=== PATIENT | female | born 1980 | race Caucasian/White ===

== ENCOUNTER 2017-12-19 03:29 | Observation (INO) | payer BC ==
[2017-12-19] MEDS ORDERED: Betamethasone Acetate/Betamethasone Sod Phosphate 30 MG/5 ML MDV IM ONE (05:14)
--- NOTE | 2017-12-19 09:01 | US ---
EXAM DATE: 12/19/17 PATIENT'S AGE: 37 Patient: RODY CORCORAN Facility: [place], [place] Site . Site : 1980 Study: US OB Pelvis -12/19/2017 5:30:43 AM Ordering Physician: Radha Whitmore Final Report: INDICATION: Vaginal bleeding TECHNIQUE: Limited transabdominal and transvaginal obstetrical ultrasound. COMPARISON: None available FINDINGS: A single live intrauterine gestation is seen in cephalic presentation. There is cardiac activity with a heart rate of 147 bpm. measurements are not performed. anatomy is not evaluated. The placenta is anterior. The inferior placental tip overlies the internal cervical os consistent with complete placenta previa. The cervix measures 3.8 centimeters. There is small fluid in the endocervical canal. The amniotic fluid index measures 24 centimeters. Neither ovary is visualized. IMPRESSION: A single live intrauterine gestation. Complete placenta previa. SLOAN measuring 24 centimeters. Very limited evaluation of anatomy. Correlate with anatomical survey , as clinically indicated. Dictated by Laurent Castellano MD @ 12/19/2017 6:08:10 AM Dictated by: Laurent Castellano MD @ 12/19/2017 06:08:16 ----- ADDENDUM ----- The findings were communicated to the patient`s nurse, Leti, on 12/19/2017 at 6 :12 a.m. Dictated by Laurent Castellano MD @ Dec 19 2017 6:17AM (Electronic Signature) Report Signed by Proxy. DARRION
--- NOTE | 2017-12-19 09:02 | US ---
EXAM DATE: 12/19/17 PATIENT'S AGE: 37 Patient: RODY CORCOARN Facility: [place], [place] Site . Site : 1980 Study: US OB Pelvis -12/19/2017 5:30:43 AM Ordering Physician: Radha Whitmore Final Report: INDICATION: Vaginal bleeding TECHNIQUE: Limited transabdominal and transvaginal obstetrical ultrasound. COMPARISON: None available FINDINGS: A single live intrauterine gestation is seen in cephalic presentation. There is cardiac activity with a heart rate of 147 bpm. measurements are not performed. anatomy is not evaluated. The placenta is anterior. The inferior placental tip overlies the internal cervical os consistent with complete placenta previa. The cervix measures 3.8 centimeters. There is small fluid in the endocervical canal. The amniotic fluid index measures 24 centimeters. Neither ovary is visualized. IMPRESSION: A single live intrauterine gestation. Complete placenta previa. SLOAN measuring 24 centimeters. Very limited evaluation of anatomy. Correlate with anatomical survey , as clinically indicated. Dictated by Laurent Castellano MD @ 12/19/2017 6:08:10 AM Dictated by: Laurent Castellano MD @ 12/19/2017 06:08:16 ----- ADDENDUM ----- The findings were communicated to the patient`s nurse, Leti, on 12/19/2017 at 6 :12 a.m. Dictated by Laurent Castellano MD @ Dec 19 2017 6:17AM (Electronic Signature) Report Signed by Proxy. DARRION
[2017-12-20] MEDS ORDERED: Betamethasone Acetate/Betamethasone Sod Phosphate 30 MG/5 ML MDV IM ONE (05:22)
[2017-12-21] MEDS: Nitrofurantoin Monohydrate/Macrocrystalline 100 MG Cap PO SCH ×2 (19:30→21:00)
[2017-12-22] MEDS: Nitrofurantoin Monohydrate/Macrocrystalline 100 MG Cap PO SCH (09:16)
== END 2017-12-22 10:50 | disposition home or self-care (01) ==
LOC: MW.OBCHECK 03:29 → MW.OB 03:32 → MW.OBCHECK 03:48 → MW.OB 12-20 20:44
PROVIDERS: ADMIT Obstetrics & Gynecology; ATTEND Obstetrics & Gynecology
DX: O44.12 Complete placenta previa with hemorrhage, second trimester (principal); Z3A.23 23 weeks gestation of pregnancy
CPT/HCPCS: 36415; 76805; 76817; 81001; 85027; 85384; 85610; 85730; 86850; 86900; 86901; 87086; 87088; 87186; 96372; A9270; G0378; J0702; J2790

== ENCOUNTER 2021-07-27 10:19 | Inpatient (IN) | payer BC ==
[2021-07-27] MEDS: Lactated Ringers 1,000 ML IV SCH ×2 (10:30→11:23)
[2021-07-27] MEDS ORDERED: Sodium Chloride 0.9% 2.5 ML Syringe FLUSH PRN (10:39)
[2021-07-27] MEDS ORDERED: Sodium Chloride 0.9% 10 ML SDV IV PRN (10:39)
[2021-07-27] MEDS ORDERED: ceFAZolin 2 GM in Premix Bag 1 BAG IV ONE (10:39)
[2021-07-27] MEDS ORDERED: Sodium Chloride 0.9% 10 ML Syringe FLUSH PRN (10:39)
[2021-07-27] MEDS ORDERED: Citric Acid/Sodium Citrate Solution 30 ML Cup PO ONE (10:39)
[2021-07-27] MEDS ORDERED: Oxytocin/0.9 % Sodium Chloride 30 UNIT/500 ML BAG IV SCH (10:45)
--- NOTE | 2021-07-27 10:54 | PCM.PREANE ---
Preanesthetic Assessment - Anesthesia/Transfusion/Family Hx Anesthesia History: Prior Anesthesia Without Reaction (PONV - Itching) Type of Anesthesia Reaction: Other (see below) (PONV) Family History of Anesthesia Reaction: Yes Transfusion History: Prior Transfusion Without Reaction Additional History: Multiple prior surgery and C Section without anesthesia complications. - Review of Systems General: No Symptoms Pulmonary: No Symptoms Cardiovascular: No Symptoms Gastrointestinal: No Symptoms Neurological: No Symptoms Other: Reports: None - Physical Assessment NPO Status Date: 07/27/21 NPO Status Time: 00:00 Height: 1.93 m Weight: 131.995 kg Mental Status: Alert & Oriented x3 Airway Class: Mallampati = 1 Dentition: Reports: Normal Dentition Thyro-Mental Finger Breadths: 3 Mouth Opening Finger Breadths: 3 ROM/Head Extension: Full Lungs: Clear to Auscultation, Normal Respiratory Effort Cardiovascular: Regular Rate, Regular Rhythm - Allergies Allergies/Adverse Reactions: Allergies Allergy/AdvReac Type Severity Reaction Status Date / Time No Known Allergies Allergy Verified 07/21/21 07:37 - Blood Blood Available: Yes Product(s) Available: PRBC (Type and Screen) - Anesthesia Plan Pre-Op Medication Ordered: None - Acknowledgements Anesthesia Type Planned: Spinal Pt an Appropriate Candidate for the Planned Anesthesia: Yes Alternatives and Risks of Anesthesia Discussed w Pt/Guardian: Yes Pt/Guardian Understands and Agrees with Anesthesia Plan: Yes Additional Comments: Pt denies coagulopathy, neurological disorders, or anticoagulant use. PreAnesthesia Questionnaire HEENT History: Reports: Other (See Below) Other HEENT History: wears glasses Cardiovascular History: Reports: None Respiratory History: Reports: Sleep Apnea Other Respiratory History: states has been diagnosed with sleep apnea but has not received her CPAP yet as it has been recalled Gastrointestinal History: Reports: None Genitourinary History: Reports: None [employer] History: Reports: Neurological History: Reports: None Psychiatric History: Reports: Anxiety, Depression Endocrine/Metabolic History: Reports: Obesity/BMI 30+ Hematologic History: Reports: Blood Transfusion(s) Immunologic History: Reports: None Oncologic (Cancer) History: Reports: None Dermatologic History: Reports: None - Past Surgical History Musculoskeletal Surgical History: Reports: Knee Replacement - SUBSTANCE USE Tobacco Use Status *Q: Never Tobacco User Recreational Drug Use History: No - HOME MEDS Home Medications: Home Meds Acetaminophen [Tylenol Extra Strength] 2 tab PO ASDIRECTED PRN 07/21/21 [History] Ferrous Sulfate [Iron] 65 mg PO ASDIRECTED 07/21/21 [History] Pnv No.95/Ferrous Fum/Folic AC [ Vitamin Tablet] 1 tab PO DAILY 07/21/21 [History] - CURRENT (IN HOUSE) MEDS Current Meds: Current Medications Citric Acid/Sodium Citrate (Citric Acid/Sodium Citrate Solution 30 Ml Cup) 30 ml PO ONETIME ONE Stop: 07/27/21 10:40 Oxytocin/Sodium Chloride (Oxytocin 30 Unit In Ns 0.9% 500 Ml Premix) 30 unit in 500 mls @ 250 mls/hr IV TITRATE MARIA C Cefazolin Sodium/Dextrose 2 gm (/ Premix) 50 mls @ 100 mls/hr IV ONETIME ONE Stop: 07/27/21 11:08 Lactated Ringer's (Ringers, Lactated) 1,000 mls @ 500 mls/hr IV BOLUS MARIA C Sodium Chloride (Sodium Chloride 0.9% 10 Ml Syringe) 10 ml FLUSH ASDIRECTED PRN PRN Reason: Keep Vein Open Sodium Chloride (Sodium Chloride 0.9% 2.5 Ml Syringe) 2.5 ml FLUSH ASDIRECTED PRN PRN Reason: Keep Vein Open Sodium Chloride (Sodium Chloride 0.9% 10 Ml Sdv) 10 ml IV ASDIRECTED PRN PRN Reason: IV Use
[2021-07-27] MEDS ORDERED: Morphine PF 10 MG/10 ML SDV ONE (11:33)
[2021-07-27] MEDS ORDERED: Oxytocin 10 Units/1 ML SDV ONE ×2 (12:26→12:54)
[2021-07-27] MEDS ORDERED: ceFAZolin 1 GM Vial ONE (12:26)
[2021-07-27] MEDS ORDERED: Ondansetron 4 MG/2 ML SDV ONE (12:26)
[2021-07-27] MEDS ORDERED: Lidocaine 1% 2 ML ONE (12:41)
--- NOTE | 2021-07-27 13:25 | PCM.POSTAN ---
POST ANESTHESIA ASSESSMENT - MENTAL STATUS Mental Status: Alert, Oriented - RESPIRATORY Respiratory Status: Respiratory Rate WNL, Airway Patent, O2 Saturation Stable - CARDIOVASCULAR CV Status: Pulse Rate WNL, Blood Pressure Stable - GASTROINTESTINAL GI Status: No Symptoms - PAIN Pain Score: 0 - POST OP HYDRATION Hydration Status: Adequate & Stable
[2021-07-27] MEDS ORDERED: Lanolin 100% Cream 7 GM Tube TOP PRN (13:53)
[2021-07-27] MEDS ORDERED: Tranexamic Acid 1,000 MG in Sodium Chloride 0.9% 100 ML IV PRN (13:53)
[2021-07-27] MEDS ORDERED: Misoprostol 200 MCG Tab RECTAL PRN (13:53)
[2021-07-27] MEDS ORDERED: Ibuprofen 800 MG Tab PO PRN (13:53)
[2021-07-27] MEDS ORDERED: Bisacodyl 10 MG Supp RECTAL PRN (13:53)
[2021-07-27] MEDS ORDERED: Acetaminophen/oxyCODONE 325-5 MG Tab PO PRN ×2 (13:53)
[2021-07-27] MEDS ORDERED: Methylergonovine 0.2 MG/1 ML Amp IM PRN (13:53)
[2021-07-27] MEDS ORDERED: Oxytocin 10 Units/1 ML SDV IM PRN (13:53)
[2021-07-27] MEDS ORDERED: Ondansetron 4 MG/2 ML SDV IVPUSH PRN (13:53)
[2021-07-27] MEDS ORDERED: Oxytocin/Lactated Ringers 30 UNIT/500 ML BAG IV SCH (14:00)
[2021-07-27] MEDS ORDERED: Lactated Ringers 1,000 ML IV SCH (14:00)
--- NOTE | 2021-07-27 14:03 | PCM.OPNOTE ---
- General Post-Op/Procedure Note Date of Surgery/Procedure: 07/27/21 Operative Procedure(s): Repeat lower transverse section. Removal of left axilla skin tag Findings: Live female delivered at 1206pm , 8/9 , weight 4700g , 3vc Skin tag removed 1cm in the left axillA Paper thin lower uterine segment, with 4cm area of translucency Pre Op Diagnosis: 41yo @ 39w2d for repeat cesearean delivery. Left axilla skin tag Post-Op Diagnosis: Same Anesthesia Technique: Local (1% lidocaine for skin tag), Spinal Primary Surgeon: Haim Garcia Anesthesia Provider: Yordy Fox Pathology: skin tag Fluid Replacement, Intraop: 2,100 Output, Urine Amount: 200 EBL in mLs: 600 Complications: None Condition: Good Free Text/Narrative:: Intake & Output 07/26/21 07/27/21 07/27/21 22:59 06:59 14:59 Output Total 300 Balance -300
[2021-07-27] MEDS: Ketorolac 30 MG/ML SDV IVPUSH SCH ×2 (14:49→20:55)
[2021-07-27] MEDS: diphenhydrAMINE 50 MG/ML SDV IVPUSH PRN (16:32)
[2021-07-27] MEDS: Docusate Sodium 100 MG Cap PO SCH (20:56)
[2021-07-27] MEDS ORDERED: fentaNYL 100 MCG/2 ML SDV ONE (22:25)
[2021-07-28] MEDS: diphenhydrAMINE 50 MG/ML SDV IVPUSH PRN (00:37)
[2021-07-28] MEDS: Ketorolac 30 MG/ML SDV IVPUSH SCH ×3 (02:46→14:23)
[2021-07-28] MEDS: Docusate Sodium 100 MG Cap PO SCH (08:50)
--- NOTE | 2021-07-28 08:57 | PCM.PNPP ---
- General Info Date of Service: 07/28/21 Subjective Update: 41yo P1102 s/p repeat POD 1 She has good pain control . transferred to [place] Functional Status: Reports: Pain Controlled, Tolerating Diet, Ambulating, Urinating - Review of Systems General: Reports: No Symptoms HEENT: Reports: No Symptoms Pulmonary: Reports: No Symptoms Cardiovascular: Reports: No Symptoms Gastrointestinal: Reports: No Symptoms Genitourinary: Reports: No Symptoms Musculoskeletal: Reports: No Symptoms Skin: Reports: No Symptoms Neurological: Reports: No Symptoms Psychiatric: Reports: No Symptoms - General Info Date of Service: 07/28/21 - Patient Data Vital Signs - Most Recent: Last Vital Signs Temp 36.3 C 07/28/21 08:00 Pulse 80 07/28/21 08:00 Resp 16 07/28/21 08:00 BP 114/57 L 07/28/21 08:00 Pulse Ox 96 07/28/21 08:00 Weight - Most Recent: 131.088 kg I&O - Last 24 Hours: Intake & Output 07/27/21 07/28/21 07/28/21 22:59 06:59 14:59 Output Total 2990 Balance -2990 Lab Results - Last 24 Hours: Laboratory Results - last 24 hr 07/27/21 07/27/21 07/27/21 Range/Units 10:57 10:57 12:06 WBC 11.24 H (4.0-11.0) K/uL RBC 3.49 L (4.30-5.90) M/uL Hgb 10.1 L (12.0-16.0) g/dL Hct 31.0 L (36.0-46.0) % MCV 88.8 (80.0-98.0) fL MCH 28.9 (27.0-32.0) pg MCHC 32.6 (31.0-37.0) g/dL RDW Std Deviation 46.0 (28.0-62.0) fl RDW Coeff of Maame 15 (11.0-15.0) % Plt Count 249 (150-400) K/uL MPV 9.10 (7.40-12.00) fL Cord ABG pH 7.285 (7.18-7.38) Cord ABG Base Excess -2 (-10--2) Cord VBG pH 7.337 (7.25-7.45) Cord VBG Base Excess -3 (-10--2) Blood Type O NEGATIVE Antibody Screen NEGATIVE Screen (NEGATIVE) RhIG Candidate? Rhogam Indicated 07/27/21 07/28/21 Range/Units 14:16 04:33 WBC (4.0-11.0) K/uL RBC (4.30-5.90) M/uL Hgb 9.8 L (12.0-16.0) g/dL Hct 30.3 L (36.0-46.0) % MCV (80.0-98.0) fL MCH (27.0-32.0) pg MCHC (31.0-37.0) g/dL RDW Std Deviation (28.0-62.0) fl RDW Coeff of Maame (11.0-15.0) % Plt Count (150-400) K/uL MPV (7.40-12.00) fL Cord ABG pH (7.18-7.38) Cord ABG Base Excess (-10--2) Cord VBG pH (7.25-7.45) Cord VBG Base Excess (-10--2) Blood Type Antibody Screen Screen NEGATIVE (NEGATIVE) RhIG Candidate? YES Rhogam Indicated YES, BABY RH POS H Med Orders - Current: Current Medications Bisacodyl (Bisacodyl 10 Mg Supp) 10 mg RECTAL ONETIME PRN PRN Reason: Constipation Diphenhydramine HCl (Diphenhydramine 50 Mg/Ml Sdv) 25 mg IVPUSH Q6H PRN PRN Reason: Itching or Nausea Last Admin: 07/28/21 00:37 Dose: 25 mg Documented by: Docusate Sodium (Docusate Sodium 100 Mg Cap) 100 mg PO BID MARIA C Last Admin: 07/28/21 08:50 Dose: 100 mg Documented by: Emollient Ointment (Lanolin 100% Cream 7 Gm Tube) 0 gm TOP ASDIRECTED PRN PRN Reason: Sore Nipples Oxytocin/Sodium Chloride (Oxytocin 30 Unit In Ns 0.9% 500 Ml Premix) 30 unit in 500 mls @ 250 mls/hr IV TITRATE MARIA C Lactated Ringer's (Ringers, Lactated) 1,000 mls @ 500 mls/hr IV BOLUS MARIA C Last Admin: 07/27/21 11:23 Dose: 999 mls/hr Documented by: Lactated Ringer's (Ringers, Lactated) 1,000 mls @ 125 mls/hr IV ASDIRECTED [facility] Oxytocin/Lactated Ringer's (Pitocin In Lr 30 Units/500 Ml) 30 unit in 500 mls @ 2 mls/hr IV TITRATE [facility]; Protocol Tranexamic Acid 1,000 mg/ (Sodium Chloride) 110 mls @ 660 mls/hr IV ONETIME PRN PRN Reason: Bleeding Ibuprofen (Ibuprofen 800 Mg Tab) 800 mg PO Q8H PRN PRN Reason: Cramping Ketorolac Tromethamine (Ketorolac 30 Mg/Ml Sdv) 30 mg IVPUSH Q6H [facility] Stop: 07/28/21 14:01 Last Admin: 07/28/21 07:58 Dose: 30 mg Documented by: Methylergonovine Maleate (Methylergonovine 0.2 Mg/1 Ml Amp) 0.2 mg IM ONETIME PRN PRN Reason: Excessive Vaginal Bleeding Misoprostol (Misoprostol 200 Mcg Tab) 1,000 mcg RECTAL ONETIME PRN PRN Reason: excessive bleeding Ondansetron HCl (Ondansetron 4 Mg/2 Ml Sdv) 4 mg IVPUSH Q4H PRN PRN Reason: Nausea/Vomiting Oxycodone/Acetaminophen (Acetaminophen/Oxycodone 325-5 Mg Tab) 1 tab PO Q4H PRN PRN Reason: Pain (severe 7-10) Oxycodone/Acetaminophen (Acetaminophen/Oxycodone 325-5 Mg Tab) 2 tab PO Q4H PRN PRN Reason: Pain (severe 7-10) Oxytocin (Oxytocin 10 Units/1 Ml Sdv) 10 unit IM ASDIRECTED PRN PRN Reason: Excessive Vaginal Bleeding Sodium Chloride (Sodium Chloride 0.9% 10 Ml Syringe) 10 ml FLUSH ASDIRECTED PRN PRN Reason: Keep Vein Open Sodium Chloride (Sodium Chloride 0.9% 2.5 Ml Syringe) 2.5 ml FLUSH ASDIRECTED PRN PRN Reason: Keep Vein Open Sodium Chloride (Sodium Chloride 0.9% 10 Ml Sdv) 10 ml IV ASDIRECTED PRN PRN Reason: IV Use Discontinued Medications Cefazolin Sodium (Cefazolin 1 Gm Vial) Confirm Administered Dose 1 gm .ROUTE .STK-MED ONE Stop: 07/27/21 12:27 Citric Acid/Sodium Citrate (Citric Acid/Sodium Citrate Solution 30 Ml Cup) 30 ml PO ONETIME ONE Stop: 07/27/21 10:40 Last Admin: 07/27/21 11:27 Dose: 30 ml Documented by: Fentanyl (Fentanyl 100 Mcg/2 Ml Sdv) Confirm Administered Dose 100 mcg .ROUTE .STK-MED ONE Stop: 07/27/21 22:26 Cefazolin Sodium/Dextrose 2 gm (/ Premix) 50 mls @ 100 mls/hr IV ONETIME ONE Stop: 07/27/21 11:08 Acetaminophen (Ofirmev 1000 Mg/100 Ml) Confirm Administered Dose 100 mls @ as directed .ROUTE .STK-MED ONE Stop: 07/27/21 12:27 Cefazolin Sodium/Dextrose (Ancef 2 Gm/50 Ml) Confirm Administered Dose 50 mls @ as directed .ROUTE .STK-MED ONE Stop: 07/27/21 12:27 Lidocaine HCl (Xylocaine-Mpf 1%) Confirm Administered Dose 4 mls @ as directed .ROUTE .STK-MED ONE Stop: 07/27/21 12:42 Ibuprofen (Ibuprofen 800 Mg Tab) 800 mg PO Q8H PRN PRN Reason: Cramping Miscellaneous Medication (Phenylephrine Hcl In 0.9% Nacl 1 Mg/10 Ml Syringe) Confirm Administered Dose 1 mg .ROUTE .STK-MED ONE Stop: 07/27/21 12:27 Morphine Sulfate (Morphine Pf 10 Mg/10 Ml Sdv) Confirm Administered Dose 10 mg .ROUTE .STK-MED ONE Stop: 07/27/21 11:34 Ondansetron HCl (Ondansetron 4 Mg/2 Ml Sdv) Confirm Administered Dose 4 mg .ROUTE .STK-MED ONE Stop: 07/27/21 12:27 Oxytocin (Oxytocin 10 Units/1 Ml Sdv) Confirm Administered Dose 30 unit .ROUTE .STK-MED ONE Stop: 07/27/21 12:27 Oxytocin (Oxytocin 10 Units/1 Ml Sdv) Confirm Administered Dose 30 unit .ROUTE .STK-MED ONE Stop: 07/27/21 12:55 - Interaction Support Person: - Recovery Exam Fundal Tone: Firm Fundal Level: 1 Fingerbreadths Below Umbilicus Fundal Placement: Midline Lochia Amount: Scant Lochia Color: Rubra/Red Perineum Description: Intact, Minimal Bruising/Swelling Episiotomy/Laceration: None Bladder Status: Indwelling Catheter in Place Urinary Elimination: Indwelling Catheter - Exam General: Alert HEENT: Pupils Equal Neck: Supple Lungs: Clear to Auscultation, Normal Respiratory Effort Cardiovascular: Regular Rate, Regular Rhythm GI/Abdominal Exam: Normal Bowel Sounds Extremities: Normal Inspection Wound/Incisions: Dressing Dry and Intact Neurological: No New Focal Deficit Psy/Mental Status: Alert - Problem List & Annotations (1) Vaginal delivery SNOMED Code(s): 812159108 Code(s): O80 - ENCOUNTER FOR FULL-TERM UNCOMPLICATED DELIVERY Status: Acute Current Visit: Yes - Problem List Review Problem List Initiated/Reviewed/Updated: Yes - My Orders Last 24 Hours: My Active Orders 07/27/21 10:39 Patient Status [ADT] Routine Notify Provider Vital Signs [RC] PRN Up ad Myriam [RC] ASDIRECTED Vital Signs [RC] PER UNIT ROUTINE Sodium Chloride 0.9% [Normal Saline] 10 ml IV ASDIRECTED PRN Sodium Chloride 0.9% [Saline Flush] 10 ml FLUSH ASDIRECTED PRN Sodium Chloride 0.9% [Saline Flush] 2.5 ml FLUSH ASDIRECTED PRN Peripheral IV Insertion Adult [OM.PC] Routine Schedule Procedure [COMM] Per Unit Routine 07/27/21 10:45 Lactated Ringers [Ringers, Lactated] 1,000 ml IV BOLUS Oxytocin/0.9 % Sodium Chloride [Oxytocin 30 Unit in NS 0.9% 500 ML Premix] 30 unit in 500 ml IV TITRATE 07/27/21 10:57 RPR (SYPHILIS SERO) W/ RFLX [REF] Routine 07/27/21 13:53 Patient Status [ADT] Routine Ambulate [RC] PER UNIT ROUTINE Antiembolic Devices [RC] PER UNIT ROUTINE Communication Order [RC] PER UNIT ROUTINE Communication Order [RC] PER UNIT ROUTINE Communication Order [RC] Per Unit Routine May Shower [RC] ASDIRECTED Notify Provider Intake and Out [RC] ASDIRECTED Notify Provider Vital Signs [RC] ASDIRECTED RT Incentive Spirometry [RC] Q2HWA Vital Signs [RC] PER UNIT ROUTINE Acetaminophen/oxyCODONE [Percocet 325-5 MG] 1 tab PO Q4H PRN Acetaminophen/oxyCODONE [Percocet 325-5 MG] 2 tab PO Q4H PRN Lanolin [Lansinoh HPA] See Dose Instructions TOP ASDIRECTED PRN Methylergonovine [Methergine] 0.2 mg IM ONETIME PRN Ondansetron [Zofran] 4 mg IVPUSH Q4H PRN Oxytocin [Pitocin] 10 unit IM ASDIRECTED PRN Tranexamic Acid [Cyklokapron] 1,000 mg Sodium Chloride 0.9% [Normal Saline] 100 ml IV ONETIME bisacodyL [Dulcolax] 10 mg RECTAL ONETIME PRN diphenhydrAMINE [Benadryl] 25 mg IVPUSH Q6H PRN miSOPROStoL [Cytotec] 1,000 mcg RECTAL ONETIME PRN Assess Lochia [WOMSER] Per Unit Routine Assess Uterine Involution [WOMSER] Per Unit Routine Breast Pump [WOMSER] Per Unit Routine Peripheral IV Discontinue [OM.PC] Routine Sequential Compression Device [OM.PC] Per Unit Routine Resuscitation Status Routine 07/27/21 14:00 Ketorolac [Toradol] 30 mg IVPUSH Q6H Lactated Ringers [Ringers, Lactated] 1,000 ml IV ASDIRECTED Oxytocin/Lactated Ringers [Pitocin in LR 30 Units/500 ML] 30 unit in 500 ml IV TITRATE 07/27/21 14:16 SCREEN [BBK] Stat RH IMMUNE GLOBULIN [BBK] Stat RHIG WORKUP, [BBK] Stat 07/27/21 Dinner Regular Diet [DIET] 07/27/21 21:00 Docusate Sodium [Colace] 100 mg PO BID 07/28/21 20:29 Ibuprofen [Motrin] 800 mg PO Q8H PRN - Assessment Assessment:: 41yo P1102 s/p repeat LTCS POD1 , Doing well Normal lochia Rhogam needed - Plan Plan:: Pain control as needed [place] Incentive spirometry Rhogam before discharge Discharge teaching Discharge home today
[2021-07-28] MEDS ORDERED: Ibuprofen 800 MG Tab PO PRN (20:29)
--- NOTE | 2021-07-29 06:51 | OR ---
SURGEON: MAGALY FORTUNE DATE OF PROCEDURE: 07/27/2021 PREOPERATIVE DIAGNOSES: A 41-year-old G2, P0-1-0-1 at 39 weeks and 2 days for repeat section. Left axillary skin tag POSTOPERATIVE DIAGNOSES: Same PROCEDURE: Repeat section and removal of left axillary skin tag. ESTIMATED BLOOD LOSS: 600. INTRAVENOUS FLUIDS: 2100. URINE OUTPUT: 300. ANESTHESIA: Spinal. NOTES AND FINDINGS: A live female delivered at 12:06. scores of 8 and 9. Weight is 4700 g. In the lower uterine segment, there was a 4 cm very paper thin lower uterine segment, which was translucent. BRIEF HISTORY ABOUT THE PATIENT: A 41-year-old G2, P0-1-0-1 at 39 weeks and 2 days who had a previous history of section for placenta previa. She desired having a repeat . She was explained of the risks, benefits, and alternatives and she decided to proceed. She also had an axillary left skin tag, which she wanted to remove. DESCRIPTION OF PROCEDURE: The patient was taken to the operating room where spinal anesthesia was performed without difficulty. She was prepared and draped in the dorsal supine position with a leftward tilt. A Pfannenstiel skin incision was made with a scalpel and carried down to the fascia with a Bovie. The fascia was incised and extended upwards and laterally. The rectus muscle was down to the level of the pubic symphysis. The abdomen was entered in bluntly. The lower uterine segment was noted, which was noted to be paper thin. Hal retractor was placed in without difficulty. A lower uterine incision was made. Fetus in cephalic position was brought to the level of the incision. With fundal pressure, infant was delivered without any difficulty. Delayed cord clamping was observed. The was handed over to the awaiting kerfer machine operator and nursery team. The placenta was delivered by manual massage of the uterine fundus. The hysterotomy incision was cleaned. The incision was closed in 2 layers, first layer with 0 Vicryl and second layer with 0 Vicryl. The adnexa were inspected of the right and the left, were noted to be normal. The Hal retractor was removed. The peritoneum was closed with 2-0 Vicryl. The fascia was closed with 0 Vicryl. The subcutaneous layer was closed with plain gut. The skin was closed with 3-0 Monocryl on a Manuelito needle. All instrument and pad counts were correct x2. VIV DUTTON /[id number] MTDD
== END 2021-07-28 14:30 | disposition home or self-care (01) | DRG 540 ==
LOC: MW.OB 10:19
PROVIDERS: ADMIT Obstetrics & Gynecology; ATTEND Obstetrics & Gynecology
PROC: 10D00Z1 Extraction of Products of Conception, Low, Open Approach (ICD-10-PCS; principal; 2021-07-27)
PROC: 0HB5XZZ Excision of Chest Skin, External Approach (ICD-10-PCS; 2021-07-27)
PROC: 30233N1 Transfusion of Nonautologous Red Blood Cells into Peripheral Vein, Percutaneous Approach (ICD-10-PCS; 2021-07-28)
DX: O34.211 Maternal care for low transverse scar from previous cesarean delivery (principal); Z3A.39 39 weeks gestation of pregnancy; Z37.0 Single live birth
CPT/HCPCS: 36415; 51702; 59025; 82803; 85014; 85018; 85027; 85460; 86592; 86850; 86900; 86901; A9270-GY; J0131; J0690; J1200; J1885; J2270; J2370; J2405; J2590; J2790; J3010; J7120